=== PATIENT | male | born 1995 | race African-American/Black ===

== ENCOUNTER 2020-05-14 21:31 | Emergency (ER) | payer OTHER ==
[~2020-05-14] VITALS: Ht 170.2 cm; Wt 86.2 kg
[2020-05-14 23:58] LABS: ABSOLUTE NEUTROPHILS 4.8 thou/uL (1.4-8.2); BASOPHILS 0.3 % (0.0-2.0); EOSINOPHILS 0.7 % (0.0-3.0); HEMATOCRIT 51.5 % (42.0-52.0); HEMOGLOBIN 17.5 gm/dL (14.0-18.0); LYMPHOCYTES 27.1 % (24.0-44.0); MCH 30.4 pg (26.0-34.0); MCHC 33.9 g/dL (28.0-37.0); MCV 89.6 fL (80.0-100.0); MONOCYTES 7.3 % (1.0-8.0); PLATELET COUNT 290 thou/uL (150-400); POLYS 64.6 % (36.0-66.0); RBC 5.74 mil/uL (4.50-6.00); RDW 13.3 % (10.5-14.5); WBC 7.4 thou/uL (4.0-11.0)
[2020-05-15 00:07] VITALS: BP 132/81
[2020-05-15 00:07] LABS: CREATININE 1.2 mg/dL (0.7-1.3); POTASSIUM 3.6 mmol/L (3.5-5.1)
[2020-05-15 00:15] LABS: ALBUMIN 4.5 g/dL (3.4-5.0); DIRECT BILIRUBIN 0.1 mg/dL (<0.1-0.2); TOTAL BILIRUBIN 0.7 mg/dL (0.2-1.0); TOTAL PROTEIN 8.1 g/dL (6.4-8.2)
== END 2020-05-15 00:08 | disposition home or self-care (01) ==
LOC: ER 21:31
PROVIDERS: Emergency Medicine
DX: R11.2 Nausea with vomiting, unspecified (principal); R51 Headache